=== PATIENT | female | born 1985 | race Caucasian/White ===

== ENCOUNTER 2017-09-29 16:46 | Emergency (ER) | payer SELFPAY ==
[~2017-09-29] VITALS: Ht 154.9 cm; Wt 70.0 kg
[2017-09-29] MEDS ORDERED: DIPHENHYDRAMINE 50MG CAPSULE PO ONE (17:30)
[2017-09-29] MEDS ORDERED: METHYLPREDNISOLONE SOD SUCC 125 MG/2 ML VIAL IM ONE (19:00)
[2017-09-29] MEDS ORDERED: FAMOTIDINE 20MG TABLET PO ONE (19:00)
[2017-09-29 20:15] VITALS: BP 128/75
== END 2017-09-29 20:30 | disposition home or self-care (01) ==
LOC: ER 18:49
DX: T78.3XXA Angioneurotic edema, initial encounter (principal); X58.XXXA Exposure to other specified factors, initial encounter; Y93.89 Activity, other specified; Y92.89 Other specified places as the place of occurrence of the external cause; Y99.8 Other external cause status
CPT/HCPCS: 96372; 99283; J2930; Q0163